=== PATIENT | male | born 1955 | race Caucasian/White ===

== ENCOUNTER 2019-09-05 07:50 | Day surgery (SDC) | payer OTHER, BC ==
[2019-09-04 11:43] VITALS: BMI 31.3
[2019-09-05] MEDS ORDERED: PROPOFOL 20 ML ONE ×2 (08:01)
[2019-09-05] MEDS ORDERED: LIDOCAINE HCL/PF 2% SDV 5ML VIAL ONE (08:01)
[2019-09-05 08:34] VITALS: TEMP 97.6
[2019-09-05 09:28] VITALS: PULSE 74
[2019-09-05 10:04] VITALS: BP 140/79
--- NOTE | 2019-09-09 16:29 | PATH ---
Surgical Pathology Report Patient Name: DARRELL AYON [facility]. Rec. #: [id number] /Age/Gender: 1955 (Age: 64) / M Account: [id number] Location: [facility] Taken: 09/05/2019 Received: 09/05/2019 Reported: 09/09/2019 Physicians: Jean-Paul Rajput M.D. Specimen(s) Received A: POLYP RIGHT COLON B: POLYP RECTO SIGMOID COLON Clinical History History of polyps Postoperative diagnosis: Colon polyps Final Diagnosis A. COLON, RIGHT, POLYP, BIOPSY: TUBULAR ADENOMA. B. RECTOSIGMOID COLON, POLYP, BIOPSY: HYPERPLASTIC POLYP. Electronically Signed Chiquita Patten M.D. Gross Description A. Received in formalin, labeled "biopsy polyp right colon" is a peck, irregular portion of soft tissue measuring 0.3 cm. in greatest dimension. The specimen is submitted in toto in one cassette. B. Received in formalin, labeled "biopsy polyp rectosigmoid colon" is a peck, irregular portion of soft tissue measuring 0.3 cm. in greatest dimension. The specimen is submitted in toto in one cassette. DL/09/06/2019 saudi/09/06/2019
== END 2019-09-05 09:45 | disposition home or self-care (01) ==
LOC: FASU-ENDO 07:50
PROVIDERS: ATTEND Internal Medicine Gastroenterology
PROC: 0DBN8ZX Excision of Sigmoid Colon, Via Natural or Artificial Opening Endoscopic, Diagnostic (ICD-10-PCS; 2019-09-05)
PROC: 0DBK8ZX Excision of Ascending Colon, Via Natural or Artificial Opening Endoscopic, Diagnostic (ICD-10-PCS; principal; 2019-09-05 08:51)
DX: Z86.010 Personal history of colon polyps (principal); D12.2 Benign neoplasm of ascending colon; D12.7 Benign neoplasm of rectosigmoid junction
CPT/HCPCS: 82962; 88305-TC

== ENCOUNTER 2020-12-22 02:47 | Inpatient (IN) | payer OTHER, BC ==
[2020-12-22 04:42] LABS: BASO % 0.3 % (0-2.0); EOS % 0.4 % (0-4.5); HEMATOCRIT 35.5 % (35.4-49); LYMPH % 14.7 % (8-40); MCH 27.1 pg (25.7-33.7); MCHC 33.9 g/dl (32.0-35.9); MEAN CELL VOLUME 79.7 fl (80-96); MEAN PLT VOLUME 7.8 fl (7.5-11.1); MONO % 6.2 % (3.8-10.2); NEUT % 78.4 % (42.8-82.8); PLATELET COUNT 144 10^3/uL (134-434); RBC 4.45 M/mm3 (4.00-5.60); RDW 14.6 % (11.9-15.9); WHITE BLOOD COUNT 9.7 K/mm3 (4.0-10.0)
[2020-12-22 04:57] LABS: INR 1.05 (0.83-1.09); PROTHROMBIN TIME (PATIENT) 12.9 SEC (9.7-13.0)
[2020-12-22 04:59] LABS: ACTIVATED PTT 26.1 SECONDS (25.2-36.5)
[2020-12-22 05:00] LABS: CHLORIDE 89 mmol/L (98-107); SODIUM 125 mmol/L (136-145)
[2020-12-22 05:02] LABS: CALCIUM 8.1 mg/dL (8.5-10.1)
[2020-12-22 05:03] LABS: ALBUMIN 3.5 g/dl (3.4-5.0); ANION GAP 12 MMOL/L (8-16); BLOOD UREA NITROGEN 16.9 mg/dL (7-18); CO2 23 mmol/L (21-32); GLUCOSE,RANDOM 241 mg/dL (74-106)
[2020-12-22 05:06] LABS: CREATININE 1.2 mg/dL (0.55-1.3); SGOT/AST 14 U/L (15-37); SGPT/ALT 23 U/L (13-61)
[2020-12-22 05:08] LABS: BILIRUBIN,TOTAL 1.3 mg/dL (0.2-1); TOT PROT 6.8 g/dl (6.4-8.2)
[2020-12-22 05:09] LABS: ALK PHOS 49 U/L (45-117)
[2020-12-22] MEDS ORDERED: SODIUM CHLORIDE 0.9% 500 ML INFUS.BAG IV ONE (06:42)
[2020-12-22] MEDS ORDERED: ACETAMINOPHEN 325 MG TABLET (FP) PO PRN (09:14)
[2020-12-22] MEDS ORDERED: NEBIVOLOL HCL 20 MG PO SCH (10:00)
[2020-12-22 10:01] LABS: EPI CELLS 32 /uL (0-25.1); HYALINE CASTS 0 /uL (0-3.1); PH,URINE 6.5 (5.0-8.0); URINE APPEARANCE CLEAR; URINE BACTERIA 101 /uL (0-1359); URINE BILIRUBIN NEGATIVE (NEGATIVE); URINE COLOR RED; URINE GLUCOSE (UA) 2+ (NEGATIVE); URINE KETONE NEGATIVE (NEGATIVE); URINE LEUK ESTERASE 1+ (NEGATIVE); URINE NITRITE NEGATIVE (NEGATIVE); URINE PROTEIN 2+ (NEGATIVE); URINE RBC 460 /uL (0-23.9); URINE UROBILINOGEN 0.2 mg/dL (0.2-1.0); URINE WBC 44 /uL (0-25.8)
[2020-12-22] MEDS ORDERED: amLODIPine BESYLATE 5 MG TABLET (FP) ONE (10:41)
[2020-12-22] MEDS ORDERED: HEPARIN NA (PORCINE) 5,000 UNITS/ML 1ML VIAL ONE (10:42)
[2020-12-22] MEDS ORDERED: LISINOPRIL 5 MG TABLET ONE (10:42)
[2020-12-22] MEDS ORDERED: CEFTRIAXONE 1 GM/50 ML BAG ONE (10:43)
[2020-12-22] MEDS: amLODIPine BESYLATE 5 MG TABLET (FP) PO SCH (10:49)
[2020-12-22] MEDS: CEFTRIAXONE 1 GM in DEXTROSE 5%-WATER - 50 ML IVPB SCH (10:49)
[2020-12-22] MEDS: LISINOPRIL 10 MG TABLET PO SCH (10:49)
[2020-12-22] MEDS: HEPARIN NA (PORCINE) 5,000 UNITS/ML 1ML VIAL SQ SCH ×2 (10:53→21:17)
[2020-12-22 11:19] LABS: BLOOD UREA NITROGEN 13.3 mg/dL (7-18)
[2020-12-22] MEDS: NEBIVOLOL 10 MG TABLET (FP) PO SCH (11:30)
[2020-12-22 11:39] LABS: CALCIUM 8.4 mg/dL (8.5-10.1)
[2020-12-22 11:41] LABS: CREATININE 1.2 mg/dL (0.55-1.3)
[2020-12-22 14:10] VITALS: BMI 30.3
[2020-12-22] MEDS ORDERED: SODIUM CHLORIDE 1,000 ML IV SCH ×2 (15:00→22:40)
[2020-12-22] MEDS ORDERED: ROSUVASTATIN CA 20 MG TABLET (FP) PO SCH (22:00)
[2020-12-23] MEDS ORDERED: sitaGLIPtin PHOSPHATE 50 MG TABLET PO SCH (07:00)
[2020-12-23] MEDS ORDERED: GLIMEPIRIDE 4 MG TABLET PO SCH (07:00)
[2020-12-23 07:47] LABS: BASO % 0.4 % (0-2.0); EOS % 0.6 % (0-4.5); HEMATOCRIT 38.1 % (35.4-49); LYMPH % 15.7 % (8-40); MCH 27.3 pg (25.7-33.7); MEAN CELL VOLUME 80.2 fl (80-96); MEAN PLT VOLUME 7.7 fl (7.5-11.1); MONO % 7.8 % (3.8-10.2); NEUT % 75.5 % (42.8-82.8); PLATELET COUNT 157 10^3/uL (134-434); RBC 4.76 M/mm3 (4.00-5.60); WHITE BLOOD COUNT 7.2 K/mm3 (4.0-10.0)
[2020-12-23 08:14] LABS: ALBUMIN 3.5 g/dl (3.4-5.0); BLOOD UREA NITROGEN 9.8 mg/dL (7-18); CALCIUM 8.9 mg/dL (8.5-10.1)
[2020-12-23 08:18] LABS: CREATININE 1.1 mg/dL (0.55-1.3)
[2020-12-23 08:24] LABS: BILIRUBIN,TOTAL 0.9 mg/dL (0.2-1)
[2020-12-23] MEDS ORDERED: TAMSULOSIN HCL 0.4 MG CAP PO SCH (08:30)
[2020-12-23] MEDS ORDERED: DEXTROSE 5%-WATER - 1,000 ML IV SCH (08:45)
[2020-12-23] MEDS: NEBIVOLOL 10 MG TABLET (FP) PO SCH (10:10)
[2020-12-23] MEDS ORDERED: PT OWN MED DRAWER 7, Y5N ONE (10:12)
[2020-12-23] MEDS ORDERED: cefTRIAXone SODIUM 1 GM VIAL ONE (10:13)
[2020-12-23] MEDS ORDERED: DEXTROSE 5%-WATER - 50 ML IVPB ONE (10:13)
[2020-12-23] MEDS: LISINOPRIL 10 MG TABLET PO SCH (10:16)
[2020-12-23] MEDS: HEPARIN NA (PORCINE) 5,000 UNITS/ML 1ML VIAL SQ SCH ×2 (10:16→10:32)
[2020-12-23] MEDS: CEFTRIAXONE 1 GM in DEXTROSE 5%-WATER - 50 ML IVPB SCH (10:16)
[2020-12-23] MEDS: amLODIPine BESYLATE 5 MG TABLET (FP) PO SCH (10:16)
[2020-12-23 10:24] VITALS: TEMP 98.3
[2020-12-23 13:52] VITALS: BP 145/66; PULSE 79
[2020-12-23 16:23] LABS: CALCIUM 8.3 mg/dL (8.5-10.1)
[2020-12-23 16:27] LABS: CREATININE 1.3 mg/dL (0.55-1.3)
== END 2020-12-23 19:29 | disposition home or self-care (01) | DRG 641 ==
LOC: JER 02:47 → JERBED 06:06 → J7W 11:40
PROVIDERS: ATTEND Family Medicine
DX: E87.1 Hypo-osmolality and hyponatremia (principal); N13.8 Other obstructive and reflux uropathy; I10 Essential (primary) hypertension; E11.9 Type 2 diabetes mellitus without complications; E78.5 Hyperlipidemia, unspecified; K21.9 Gastro-esophageal reflux disease without esophagitis; N32.89 Other specified disorders of bladder; N40.1 Benign prostatic hyperplasia with lower urinary tract symptoms; R31.9 Hematuria, unspecified; T50.2X5A Adverse effect of carbonic-anhydrase inhibitors, benzothiadiazides and other diuretics, initial encounter
CPT/HCPCS: 36415; 71045-TC-FY; 80048; 80053; 81003; 82962; 83930; 83935; 84300; 84443; 84484; 85025; 85610; 85730; 86850; 86900; 86901; 87086; 93005; 93010; 99285-25; C9803; J1644; U0003; U0005

== ENCOUNTER 2024-02-03 05:59 | Emergency (ER) | payer OTHER, BC ==
[2024-02-03 06:14] VITALS: RESP 18; BMI 28.1
[2024-02-03 06:42] LABS: BASO % 0.9 % (0-2.0); EOS % 5.1 % (0-4.5); HEMATOCRIT 46.1 % (35.4-49); HEMOGLOBIN 15.3 GM/dL (11.7-16.9); LYMPH % 26.2 % (8-40); MCH 27.2 pg (25.7-33.7); MCHC 33.3 g/dl (32.0-35.9); MEAN CELL VOLUME 81.6 fl (80-96); MEAN PLT VOLUME 7.6 fl (7.5-11.1); MONO % 6.6 % (3.8-10.2); NEUT % 61.2 % (42.8-82.8); PLATELET COUNT 168 10^3/uL (134-434); RBC 5.65 M/mm3 (4.00-5.60); WHITE BLOOD COUNT 6.7 K/mm3 (4.0-10.0)
[2024-02-03 07:00] LABS: INR 0.99 (0.83-1.09); PROTHROMBIN TIME (PATIENT) 11.2 SEC (9.7-13.0)
[2024-02-03 07:01] LABS: CALCIUM 9.3 mg/dL (8.5-10.1)
[2024-02-03 07:02] LABS: ALBUMIN 3.8 g/dl (3.4-5.0); BLOOD UREA NITROGEN 23.4 mg/dL (7-18)
[2024-02-03 07:03] LABS: URINE APPEARANCE CLEAR; URINE BILIRUBIN NEGATIVE (NEGATIVE); URINE COLOR YELLOW; URINE GLUCOSE (UA) 3+ (NEGATIVE); URINE KETONE NEGATIVE (NEGATIVE); URINE LEUK ESTERASE NEGATIVE (NEGATIVE); URINE NITRITE NEGATIVE (NEGATIVE); URINE PROTEIN NEGATIVE (NEGATIVE); URINE UROBILINOGEN 0.2 mg/dL (0.2-1.0)
[2024-02-03 07:05] LABS: CREATININE 1.6 mg/dL (0.55-1.3)
[2024-02-03 07:07] LABS: BILIRUBIN,TOTAL 0.8 mg/dL (0.2-1); TOT PROT 7.3 g/dl (6.4-8.2)
[2024-02-03] MEDS: SODIUM CHLORIDE 0.9% 500 ML INFUS.BAG IV ONE (07:34)
[2024-02-03 08:56] VITALS: BP 146/89; PULSE 79
== END 2024-02-03 08:56 | disposition home or self-care (01) ==
LOC: JER 05:59
DX: I10 Essential (primary) hypertension (principal); R42 Dizziness and giddiness
CPT/HCPCS: 36415; 71045-TC-FY; 80053; 81003; 84484; 85025; 85610; 85730; 87086; 93005; 93010; 99285-25